=== PATIENT | female | born 2000 | race Two or more races ===

== ENCOUNTER → 2020-02-24 | Emergency (ER) | payer OTHER ==
[~2020-02-24] VITALS: Ht 154.9 cm; Wt 52.2 kg
[~2020-02-24] MED LIST: MECLIZINE HCL25 MG ORAL
[2020-02-24 20:42] VITALS: BP 98/70
--- NOTE | 2020-02-24 20:57 | Emergency Room Report ---
History of Present Illness General Chief Complaint: Dizziness Source: Patient Present Illness HPI The patient states that she has a history of chronic vertigo. She states she has been seen for this previously and had been on medications for it. She also has a history of generalized anxiety disorder. She states she had an anxiety attack earlier today and then noted that her vertigo had returned. She states her vertigo is worse with movement and particularly is worse to one side. She states she will have to sleep upright. She has tried the Lotus maneuver in the past and states that does not work for her. She denies recent illness. She denies cough or congestion. Denies fever or chills. She denies sneezing or rhinorrhea. She denies chest pain or shortness of breath. She states she is frustrated with her history of vertigo and would like this further evaluated. She has no other complaints. Allergies: Coded Allergies: No Known Allergies (Unverified , 02/24/20) COVID-19 Screening Contact w/high risk pt: No Experienced COVID-19 symptoms?: No COVID-19 Testing performed DIRECTOR FUNDRAISING: Yes - 02/22/30 COVID-19 Screening: Negative COVID-19 COVID-19 Testing Source: [facility] Patient History Past Medical History: see triage record, psych hx, other - vertigo Social History: Denies: smoking, alcohol use, drug use Last Menstrual Period: currently Now: No Reviewed Nursing Documentation: PMH: Agreed; PSxH: Agreed Nursing Documentation-PMH Past Medical History: No History, Except For Review of Systems All Other Systems: negative except mentioned in HPI Physical Exam Vital Signs Date Time Temp Pulse Resp B/P (MAP) Pulse Ox O2 Delivery O2 Flow Rate FiO2 02/24/20 20:14 98.2 94 18 98/70 (79) 94 Room Air Sp02 EP Interpretation: reviewed, normal General Appearance: no apparent distress, alert, GCS 15, non-toxic Head: normocephalic, atraumatic Eyes: bilateral eye normal inspection, bilateral eye PERRL ENT: hearing grossly normal, normal pharynx, no angioedema, normal voice, TMs + canals normal Neck: normal inspection, full range of motion Respiratory: no respiratory distress, no retraction, no accessory muscle use, speaking full sentences Rectal: deferred Musculoskeletal: back normal, normal range of motion, gait/station normal, non-tender Neurologic: alert, motor strength/tone normal, oriented x3, sensory intact, responsive, speech normal Psychiatric: judgement/insight normal, memory normal, mood/affect normal, no suicidal/homicidal ideation Skin: no rash, normal color Medical Decision Making Diagnostic Impression: Primary Impression: Vertigo ER Course This patient has chronic vertigo. I explained to the patient that we need to follow-up with an postdoctoral research associate to further investigate the etiology of her chronic vertigo. Differential diagnosis includes benign positional vertigo, Miah Tru, Mnire's disease to name a few. Regardless, the patient is well-appearing and nontoxic. She has a normal gait and appears comfortable. She is not vomiting. I will give the patient a prescription of meclizine. She does have a primary care physician. She was instructed to follow-up with his primary care physician and so she could undergo further evaluation by an postdoctoral research associate. She indicated understanding and intention to do so. Last Vital Signs Date Time Temp Pulse Resp B/P (MAP) Pulse Ox O2 Delivery O2 Flow Rate FiO2 02/24/20 20:42 98.2 18 98/70 94 Room Air 02/24/20 20:42 94 Status: improved Disposition: HOME, SELF-CARE Condition: Improved Patient Instructions: Angelatigo Samantha Valenzuela DO Feb 24, 2020 20:57
[2020-02-24 21:06] VITALS: BP 127/85
== END | disposition home or self-care (01) ==
LOC: EMR 21:05
DX: R42 Dizziness and giddiness (principal)
CPT/HCPCS: 99282